=== PATIENT | male | born 1950 | race Caucasian/White ===

== ENCOUNTER 2016-09-06 17:38 | Emergency (ER) | payer MEDICARE ==
--- NOTE | ~2016-09-06 | ER ---
PATIENT'S NAME: VIVIAN SWENSON [facility] AGE: 65 Y [address] ROOM: [place] [address] LOCATION: [facility] ADMIT DATE: 09/06/2016 ER/Outpatient Report DISCHARGE DATE: 09/06/2016 FAMILY PHYSICIAN: Kenny Holbrook MD ATTENDING PHYSICIAN: Clara Tracey TIME OF ARRIVAL: 1738 hours. TIME SEEN: 1745 hours. IDENTIFICATION: A 65-year-old male. CHIEF COMPLAINT: Low blood sugar. HISTORY OF PRESENT ILLNESS: The patient is a 65-year-old male, not the best historian, who presents with low blood sugar. He called 911. His blood sugar was 60. It did not come up with oral, so they did give him an amp of D50, and it was 180 prior to arrival. He is awake, alert, and oriented at this time, but he still does not feel quite right. He denies pain anywhere. PAST MEDICAL HISTORY: ALLERGIES: NO KNOWN DRUG ALLERGIES. CURRENT MEDICATIONS: 1. NovoLog sliding scale. He says he normally takes 20 to 25 units 4 times a day; however, today, he took 30 units at 3, but he could not tell me why, he said, other than just to get his blood sugar down to 140 fasting. 2. He takes Levemir 30 units subcu at bedtime, and he is to increase that by 2 units every day until he gets to 140. 3. Humalog KwikPen 100 mL 20 units before every meal and at bedtime is what is on his medication list, but that is not what he has been doing. 4. Atorvastatin 80 mg daily. 5. Amiodarone 200 mg daily. 6. Carafate 1 g 4 times a day. 7. Fludrocortisone 0.1 mg daily. 8. Remeron 15 mg at h.s. 9. Ranexa 1000 mg b.i.d. 10. Plavix 75 mg daily. PATIENT'S NAME: VIVIAN SWENSON [facility] AGE: 65 Y [address] ROOM: [place] [address] LOCATION: [facility] ADMIT DATE: 09/06/2016 ER/Outpatient Report DISCHARGE DATE: 09/06/2016 FAMILY PHYSICIAN: Kenny Holbrook MD ATTENDING PHYSICIAN: Clara Tracey 11. Acetaminophen 500 mg 2 tablets 3 times a day. 12. Nitroglycerin ER 2.5 mg as needed for angina. MEDICAL PROBLEMS: 1. The patient states that he has had a heart transplant, but when you really kind of look into things and look at his old records, it looks like he has had coronary artery disease and a previous CABG at [facility]. His clerk of court is Dr. Nettles. 2. BPH. 3. Obstructive sleep apnea. 4. COPD. 5. Depression. 6. Diabetes mellitus, insulin requiring. 7. Degenerative joint disease. 8. Lumbar spinal stenosis. PRIOR SURGERIES: 1. CABG. 2. Shoulder surgery. 3. Cholecystectomy. 4. Hip replacement. SOCIAL HISTORY: The patient's primary care physician is Dr. Holbrook in [place]. He lives here in [place]. He does not work outside in the home. Tobacco use: He has been a lifelong smoker and says it varies how much. No alcohol or drug use. FAMILY HISTORY: No pertinent family history identified. REVIEW OF SYSTEMS: All systems reviewed and negative other than what is noted in the HPI. PHYSICAL EXAMINATION: VITAL SIGNS: Blood pressure 129/72, pulse 85, respirations 18, temperature 96.2, and saturation is 90%. GENERAL: A pleasant male, in no acute distress. HEENT: Head: Normocephalic, atraumatic. Ears: TMs translucent, both ears. Eyes: Pupils equal and reactive to light and accommodation. Extraocular movements intact. Nose: Mucosa pink, no lesions. Mouth: No lesions. Pharynx: Benign. NECK: Supple. No lymphadenopathy. LUNGS: Clear to auscultation. HEART: Regular rate and rhythm. ABDOMEN: Soft, nondistended, and nontender. PATIENT'S NAME: VIVIAN SWENSON [facility] AGE: 65 Y [address] ROOM: [place] [address] LOCATION: [facility] ADMIT DATE: 09/06/2016 ER/Outpatient Report DISCHARGE DATE: 09/06/2016 FAMILY PHYSICIAN: Kenny Holbrook MD ATTENDING PHYSICIAN: Clara Tracey SKIN: [place], warm, and dry. No lesions or rashes noted. NEUROLOGIC: No focal deficit. EMERGENCY DEPARTMENT COURSE: An EKG was sent. Blood sugar was checked in the field and was 60, then 57, and then after the D50, it was 187. Labs were ordered to include CBC, CMS, and Accu-Chek, and I did hand off this patient's care at 6 p.m. at shift change to Dr. Watson. Please refer to her dictation. MD BRENNON HENDERSON/modl /[id number] d: 09/07/16 1633 t: 09/09/16 1703, OUTPATIENT REPORT
--- NOTE | ~2016-09-06 | ER ---
PATIENT'S NAME: VIVIAN SWENSON [facility] AGE: 65 Y [address] ROOM: [place] [address] LOCATION: [facility] ADMIT DATE: 09/06/2016 ER/Outpatient Report DISCHARGE DATE: 09/06/2016 FAMILY PHYSICIAN: Kenny Holbrook MD ATTENDING PHYSICIAN: Clara Tracey HISTORY OF PRESENT ILLNESS: This is a 65-year-old male who was signed out to me at change of shift from Dr. Tracey. Briefly, he came in because he was worried he gave himself 30 units of insulin instead of his normal 25 units. The patient says that he wanted to bring his sugar levels below 140. He says he does use a sliding scale but is unable to tell me too much more, is a very poor historian. Came in because he was worried. When I went to evaluate him, he says he does not have any complaints at this time, he feels fine. We have done CMP, was pretty unremarkable. We did a repeat Accu-Chek as well and this was about 2 hours after he had come in and it was also unremarkable. It was 130. When I went back to evaluate the patient, he says he knows his sliding scale is at home, so asked that he follow that and follow up with his primary care doctor appropriately. IMPRESSION: Inappropriate insulin usage. MD VALENCIA BHANDARI/jhon /[id number] d: 09/07/16530 t: 09/07/16 1823, OUTPATIENT REPORT
[2016-09-06 18:05] LABS: BASOPHIL % 0.2 %; EOSINOPHIL % 0.5 %; HEMATOCRIT 42.1 % (37.0-53.0); HEMOGLOBIN 14.5 g/dL (11.0-16.0); IMMATURE GRANULOCYTE % 0.7 %; LYMPHOCYTE # 0.8 K/uL (0.8-4.0); LYMPHOCYTE % 17.6 %; MCH 29.6 pg (27.0-34.0); MCHC 34.4 gm/dL (32.0-36.5); MCV 85.9 fl (83.0-98.0); MONOCYTE # 0.6 K/uL (0.0-1.0); MONOCYTE % 13.3 %; MPV 9.6 fl (9.4-12.4); NEUTROPHIL # (ANC) 2.9 K/uL (1.4-9.0); NEUTROPHIL % 67.7 %; NRBC % 0 /100WBC (0-0.00); RDW-CV 13.7 % (11.9-14.6); WBC 4.3 K/uL (4.0-11.0)
[2016-09-06 18:06] LABS: PLATELET COUNT 186 K/uL (150-450)
[2016-09-06 18:20] LABS: ALBUMIN 3.4 gm/dL (3.5-5.0); ALK PHOS 149 IU/L (33-138); ALT 21 IU/L (12-78); AST 15 IU/L (10-40); BLOOD UREA NITROGEN 15 mg/dL (6-24); CALCIUM 8.9 mg/dL (8.5-10.5); CHLORIDE 106 mMol/L (96-110); CO2 30 mMol/L (22-32); CREATININE 0.8 mg/dL (0.6-1.3); ESTIMATED GFR (MDRD EQUATION) > 60; SODIUM 145 mMol/L (135-145); TOTAL PROTEIN 5.9 g/dL (6.0-8.4)
[2016-09-06 18:24] LABS: ANION GAP 11.9 (10.0-19.0); POTASSIUM 2.9 mMol/L (3.7-5.1); TOTAL BILIRUBIN 0.6 mg/dL (0.0-1.5)
== END 2016-09-06 19:35 | disposition disaster alternative care site (69) ==
LOC: GMED 17:38
PROVIDERS: Family Medicine
DX: T38.3X1A Poisoning by insulin and oral hypoglycemic [antidiabetic] drugs, accidental (unintentional), initial encounter (principal); I25.10 Atherosclerotic heart disease of native coronary artery without angina pectoris; N40.0 Benign prostatic hyperplasia without lower urinary tract symptoms; G47.33 Obstructive sleep apnea (adult) (pediatric); F32.9 Major depressive disorder, single episode, unspecified; E11.9 Type 2 diabetes mellitus without complications; E78.00 Pure hypercholesterolemia, unspecified; Z79.4 Long term (current) use of insulin; Z79.899 Other long term (current) drug therapy; Z79.02 Long term (current) use of antithrombotics/antiplatelets; Z95.1 Presence of aortocoronary bypass graft; Z90.49 Acquired absence of other specified parts of digestive tract; Z98.890 Other specified postprocedural states; Y99.8 Other external cause status

== ENCOUNTER → 2016-09-06 | Outpatient (CLI) | payer MEDICARE ==
[~2016-09-06] MED LIST: ARICEPT10 M1 PO; ASPIRIN LO-DOSE81 MG PO; CARAFATE1 GM PO; CEFTIN500 MG PO; CELEXA10 MG PO; CELEXA20 MG PO; CELEXA40 MG PO; CLARITIN10 MG PO; CORDARONE,PACE200 MG PO; EFFIENT10 MG PO; ELIQUIS2.5 MG PO; ELIQUIS5 MG PO; FEOSOL325 MG PO; FLOMAX0.4 MG PO; FLORINEF0.1 MG PO; HUMALOG100 UNIT/3 SUB-Q; LAMICTAL100 MG PO; LAMICTAL25 MG PO; LASIX40 MG PO; LEVEMIR FL100 UNIT/1 SUB-Q; LEVEMIR100 UNIT/1 SUB-Q; LIPITOR80 MG PO; LOPRESSOR25 MG PO; MAG-OX-400(241400 MG PO; NICODERM/HABITR21 MG TOP; NITROSTAT0.4 MG SL; NOVOLOG FL100 UNIT/1 SUB-Q; NOVOLOG100 UNIT/M SUB-Q; PLAVIX75 MG PO; PRILOSEC20 MG PO; PROTONIX40 MG PO; RANEXA ER500 MG PO; REMERON 30 MG30 MG PO; SEROQUEL25 MG PO; TOPROL XL25 MG PO; TRICOR 160 MG160 MG PO; WELLBUTRIN XL300 M2 PO; ZYPREXA10 MG PO
== END | disposition disaster alternative care site (69) ==
LOC: GAMB 17:11
DX: E11.649 Type 2 diabetes mellitus with hypoglycemia without coma (principal); R53.1 Weakness; R61 Generalized hyperhidrosis; Z95.1 Presence of aortocoronary bypass graft; Z79.4 Long term (current) use of insulin
CPT/HCPCS: A0425; A0427

== ENCOUNTER 2016-12-06 23:44 | Emergency (ER) | payer MEDICARE ==
--- NOTE | ~2016-12-06 | ER ---
PATIENT'S NAME: VIVIAN SWENSON [facility] AGE: 66 Y [address] ROOM: [place] [address] LOCATION: [facility] ADMIT DATE: 12/06/2016 ER/Outpatient Report DISCHARGE DATE: 12/07/2016 FAMILY PHYSICIAN: Kenny Holbrook MD ATTENDING PHYSICIAN: Gerber Banerjee TIME OF ARRIVAL: 23:43. TIME OF EXAMINATION: 23:44. CHIEF COMPLAINT: Abdominal pain. HISTORY OF PRESENT ILLNESS: The patient states for the past 3 days, he has had left-sided upper abdominal pain that comes and goes. It seemed to get worse tonight after supper. He had two cheeseburgers and ice cream. He has had nausea, but no vomiting. He is not sure when his last bowel movement was. He denies having a fever. He has not had any change in urination pattern. He states the pain radiates around to his back. ALLERGIES: NO KNOWN ALLERGIES. CURRENT MEDICATIONS: On his chart and were reviewed by me. PAST MEDICAL HISTORY: 1. Insulin-dependent diabetes. 2. Coronary artery disease. 3. Hypertension. PAST SURGICAL HISTORY: 1. Coronary artery bypass graft. 2. Cholecystectomy. 3. Back surgery. SOCIAL HISTORY: He smokes half pack per day. He drinks alcohol rarely. He denies use of drugs. He reports his primary provider is Dr. Holbrook in [place]. He is scheduled to see Dr. Holbrook on 12/08/2016. PATIENT'S NAME: VIVIAN SWENSON [facility] AGE: 66 Y [address] ROOM: [place] [address] LOCATION: [facility] ADMIT DATE: 12/06/2016 ER/Outpatient Report DISCHARGE DATE: 12/07/2016 FAMILY PHYSICIAN: Kenny Holbrook MD ATTENDING PHYSICIAN: Gerber Banerjee REVIEW OF SYSTEMS: All negative other than those mentioned in the HPI. PHYSICAL EXAMINATION: VITAL SIGNS: He weighed 96.8 kg. Blood pressure is 168/90, pulse is 89, respirations are 16, temperature is 98.3 tympanic, and O2 saturation is 94% on room air. GENERAL: He is awake, alert, and oriented x4. SKIN: [place], warm, and dry. PULMONARY: Respirations are even and nonlabored. Lung sounds are clear throughout. HEART: Regular rate and rhythm. ABDOMEN: Soft and nondistended. Bowel sounds are present. He is tender in the left upper quadrant. EMERGENCY ROOM COURSE: The patient arrived per ambulance BLS, walked in from the ambulance, and had a steady even gait. He was given a GI cocktail of 30 mL p.o. LABORATORY DATA AND DIAGNOSTIC STUDIES: Lab work was drawn. CBC is within normal limits. Chem Panel: Sodium is 133 with potassium of 3.8, chloride of 99, and his glucose was 497. He did just eat the two cheeseburgers and had ice cream within the last hour. BUN was 16 and creatinine was 1.2. Amylase was 40 with a lipase of 802. X-ray, KUB was completed and reviewed with Dr. Banerjee. The patient has a diffuse pattern of stool. IMPRESSION: Constipation. PLAN: The patient was given Dulcolax tablets x2. He will be discharged home with a bottle of magnesium citrate to drink at home. Increase his fluids and rest. Continue his current medications and follow up with Dr. Holbrook on Tuesday as scheduled. He verbalized understanding. AVTAR EASON APRN FOR MD RIVERA JAVIER/jhon PATIENT'S NAME: VIVIAN SWENSON [facility] AGE: 66 Y [address] ROOM: [place], [place] [address] LOCATION: ED ADMIT DATE: 12/06/2016 ER/Outpatient Report DISCHARGE DATE: 12/07/2016 FAMILY PHYSICIAN: Kenny Holbrook MD ATTENDING PHYSICIAN: Gerber Banerjee /[id number] d: 12/07/16 0512 t: 12/09/16 1208, OUTPATIENT REPORT
[2016-12-07 00:01] LABS: BASOPHIL % 0.7 %; EOSINOPHIL % 0.2 %; HEMATOCRIT 42.9 % (37.0-53.0); HEMOGLOBIN 15.6 g/dL (11.0-16.0); IMMATURE GRANULOCYTE % 0.9 %; LYMPHOCYTE # 0.9 K/uL (0.8-4.0); MCHC 36.4 gm/dL (32.0-36.5); MCV 85.3 fl (83.0-98.0); MONOCYTE # 0.5 K/uL (0.0-1.0); MONOCYTE % 12.4 %; MPV 9.8 fl (9.4-12.4); NEUTROPHIL # (ANC) 2.9 K/uL (1.4-9.0); NEUTROPHIL % 65.8 %; NRBC % 0 /100WBC (0-0.00); PLATELET COUNT 167 K/uL (150-450); RBC 5.03 M/uL (3.50-5.50); RDW-CV 13.2 % (11.9-14.6); WBC 4.4 K/uL (4.0-11.0)
[2016-12-07 00:18] LABS: ALBUMIN 3.3 gm/dL (3.5-5.0); ALK PHOS 242 IU/L (33-138); ALT 22 IU/L (12-78); ANION GAP 9.8 (10.0-19.0); AST 13 IU/L (10-40); BLOOD UREA NITROGEN 16 mg/dL (6-24); CALCIUM 9.3 mg/dL (8.5-10.5); CHLORIDE 99 mMol/L (96-110); CO2 28 mMol/L (22-32); CREATININE 1.2 mg/dL (0.6-1.3); ESTIMATED GFR (MDRD EQUATION) > 60; POTASSIUM 3.8 mMol/L (3.7-5.1); SODIUM 133 mMol/L (135-145); TOTAL BILIRUBIN 0.7 mg/dL (0.0-1.5); TOTAL PROTEIN 6.3 g/dL (6.0-8.4)
== END 2016-12-07 00:27 | disposition disaster alternative care site (69) ==
LOC: GMED 23:44
PROVIDERS: Emergency Medicine
DX: K59.00 Constipation, unspecified (principal); E11.9 Type 2 diabetes mellitus without complications; I10 Essential (primary) hypertension; F17.210 Nicotine dependence, cigarettes, uncomplicated; Z90.49 Acquired absence of other specified parts of digestive tract; Z95.1 Presence of aortocoronary bypass graft; Z86.79 Personal history of other diseases of the circulatory system; Z98.890 Other specified postprocedural states; Z79.4 Long term (current) use of insulin; Z79.899 Other long term (current) drug therapy

== ENCOUNTER → 2016-12-06 | Outpatient (CLI) | payer MEDICARE | END | disposition disaster alternative care site (69) | LOC: GAMB 23:31 | DX: R10.84 Generalized abdominal pain (principal); E11.9 Type 2 diabetes mellitus without complications; Z79.4 Long term (current) use of insulin; Z95.1 Presence of aortocoronary bypass graft | CPT/HCPCS: A0425; A0429 ==

== ENCOUNTER → 2017-01-27 | Outpatient (CLI) | payer MEDICARE | END | disposition disaster alternative care site (69) | LOC: GAMB 18:27 | DX: E11.649 Type 2 diabetes mellitus with hypoglycemia without coma (principal); Z95.1 Presence of aortocoronary bypass graft; Z79.4 Long term (current) use of insulin | CPT/HCPCS: A0425; A0429 ==